=== PATIENT | female | born 1985 | race Caucasian/White ===

== ENCOUNTER 2018-09-10 18:35 | Emergency (ER) | payer MEDICARE ==
[~2018-09-10] VITALS: Ht 157.5 cm; Wt 71.2 kg
[2018-09-10 18:50] VITALS: BP 125/56
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
== END 2018-09-10 19:04 | disposition short-term general hospital (02) ==
LOC: ER 18:35
DX: T76.21XA Adult sexual abuse, suspected, initial encounter (principal); F17.210 Nicotine dependence, cigarettes, uncomplicated; F10.20 Alcohol dependence, uncomplicated; Z88.1 Allergy status to other antibiotic agents; Z88.8 Allergy status to other drugs, medicaments and biological substances; Y90.9 Presence of alcohol in blood, level not specified
CPT/HCPCS: 99285

== ENCOUNTER 2018-10-05 11:31 | Inpatient (IN) | payer MEDICARE ==
[~2018-10-05] VITALS: Ht 157.5 cm; Wt 68.9 kg
[2018-10-05] MEDS ORDERED: IV NORMAL SALINE 1,000ML 1,000 ML IV SCH ×2 (11:38→16:45)
[2018-10-05 11:57] LABS: BASO % 0 % (0-3); EOS % 0 % (0-3); HEMATOCRIT 41.9 % (36.0-47.0); LYMPH # 0.7 x10^3/uL (1.0-4.8); LYMPH % 6 % (24-48); MEAN CORPUSCULAR HEMOGLOBIN 32 pg (25-35); MEAN CORPUSCULAR HGB CONC 34 g/dL (31-37); MEAN CORPUSCULAR VOLUME 95 fL (79-100); MONO # 0.6 x10^3/uL (0.0-1.1); MONO % 5 % (0-9); NEUT # 10.6 x10^3uL (1.8-7.7); NEUT % 89 % (31-73); PLATELET COUNT 231 x10^3/uL (140-400); RED BLOOD COUNT 4.43 x10^6/uL (3.50-5.40); RED CELL DISTRIBUTION WIDTH 12.4 % (11.5-14.5); WHITE BLOOD COUNT 11.9 x10^3/uL (4.0-11.0)
[2018-10-05] MEDS ORDERED: LORazepam 2 MG/ML VIAL IV ONE ×3 (12:00→15:30)
[2018-10-05 12:08] LABS: ALBUMIN 4.2 g/dL (3.4-5.0); CALCIUM 8.7 mg/dL (8.5-10.1); CREATININE 1.1 mg/dL (0.6-1.0); DIRECT BILIRUBIN 0.1 mg/dL (0.0-0.2); GFR 58.3; MAGNESIUM 1.6 mg/dL (1.8-2.4); TOTAL BILIRUBIN 0.2 mg/dL (0.2-1.0); TOTAL PROTEIN 7.7 g/dL (6.4-8.2)
[2018-10-05 12:11] LABS: POTASSIUM 2.8 mmol/L (3.5-5.1)
[2018-10-05 12:44] LABS: BARBITURATES NEG (NEG); BENZODIAZEPINES NEG (NEG); CANNABINOIDS NEG (NEG); COCAINE NEG (NEG); METHADONE NEG (NEG); OPIATES NEG (NEG); PHENCYCLIDINE NEG (NEG)
[2018-10-05 12:45] LABS: AMPHETAMINE/METHAMPHETAMINE POS (NEG)
[2018-10-05 12:47] LABS: BILIRUBIN,URINE NEG (NEG); CLARITY,URINE CLEAR; COLOR,URINE YELLOW; GLUCOSE,URINE 250 mg/dL (NEG)
[2018-10-05 12:48] LABS: BACTERIA,URINE FEW /HPF (0-FEW); NITRITE,URINE NEG (NEG); RBC,URINE RARE /HPF (0-2); SQUAMOUS EPITHELIAL CELL,UR OCC /LPF; UROBILINOGEN,URINE 0.2 mg/dL (0.2 mg/dL); WBC,URINE RARE /HPF (0-4)
[2018-10-05] MEDS ORDERED: POTASSIUM CHLORIDE 20 MEQ TABLET.ER. PO ONE (14:45)
--- NOTE | 2018-10-05 15:29 | PHYS DOC ---
Past History Past Medical History: Anxiety, Bipolar, Depression, Hypertension Past Surgical History: Other Alcohol Use: Heavy Drug Use: Methamphetamine Adult General Chief Complaint Chief Complaint: DRUG ABUSE HPI HPI Patient is a 32-year-old female who presents via EMS with report of erratic behavior, paranoia and tachycardia. EMS reports that heart rate was near 180 while they were in route to ER. Patient reportedly had snorted a line of methamphetamine this morning. She denies any chest pain or shortness of breath. She denies any suicidal or homicidal ideations. She states that she is afraid someone is after her and is out to harm her. Additional history is difficult to obtain as patient is poor historian at this time. Review of Systems Review of Systems Constitutional: Denies fever or chills [] Respiratory: Denies cough or shortness of breath [] Cardiovascular: No additional information not addressed in HPI [] GI: Denies abdominal pain, nausea, vomiting [] Neurologic: Denies headache, focal weakness or sensory changes [] Psychiatric: Patient very anxious, paranoid[] All other systems were reviewed and found to be within normal limits, except as documented in this note. Current Medications Current Medications Current Medications Medications (Trade) Dose Ordered Sig/Linda Start Time Stop Time Status Last Admin Dose Admin Lorazepam (Ativan) 2 mg 1X ONCE 10/05/18 15:30 10/05/18 15:31 UNV 10/05/18 15:25 2 MG Potassium Chloride (Klor-Con) 40 meq 1X ONCE 10/05/18 14:45 10/05/18 14:46 DC 10/05/18 14:57 40 MEQ Sodium Chloride 1,000 ml @ 1,000 mls/hr Q1H 10/05/18 11:38 10/05/18 12:37 DC 10/05/18 11:52 1,000 MLS/HR Allergies Allergies Allergies Coded Allergies Type Severity Reaction Last Updated Verified azithromycin Allergy Severe 09/10/18 Yes olanzapine Allergy Severe 09/10/18 Yes risperidone Allergy Severe 09/10/18 Yes Physical Exam Physical Exam Constitutional: Well developed, well nourished, in moderate to severe anxiety. [ ] HENT: Normocephalic, atraumatic, bilateral external ears normal, oropharynx moist, no oral exudates, nose normal. [] Eyes: PERRLA, EOMI, conjunctiva normal, no discharge. [] Neck: Normal range of motion, no tenderness, supple, no stridor. [] Cardiovascular: Markedly tachycardic rate with regular rhythm [] Lungs & Thorax: Bilateral breath sounds clear to auscultation [] Abdomen: Bowel sounds normal, soft, no tenderness. [] Skin: Warm, dry, no erythema, no rash. [] Extremities: No tenderness, no cyanosis, no clubbing, ROM intact, no edema. [] Neurologic: Awake and alert, normal motor function, normal sensory function, no focal deficits noted. [] Psychologic: Moderately to severely anxious. Poor judgment and insight. [] Current Patient Data Vital Signs Vital Signs Date Time Temp Pulse Resp B/P (MAP) Pulse Ox O2 Delivery O2 Flow Rate FiO2 10/05/18 11:31 177 44 100 Room Air Lab Results Laboratory Tests Test 10/05/18 11:40 10/05/18 12:14 White Blood Count 11.9 x10^3/uL (4.0-11.0) H Red Blood Count 4.43 x10^6/uL (3.50-5.40) Hemoglobin 14.0 g/dL (12.0-15.5) Hematocrit 41.9 % (36.0-47.0) Mean Corpuscular Volume 95 fL (79-100) Mean Corpuscular Hemoglobin 32 pg (25-35) Mean Corpuscular Hemoglobin Concent 34 g/dL (31-37) Red Cell Distribution Width 12.4 % (11.5-14.5) Platelet Count 231 x10^3/uL (140-400) Neutrophils (%) (Auto) 89 % (31-73) H Lymphocytes (%) (Auto) 6 % (24-48) L Monocytes (%) (Auto) 5 % (0-9) Eosinophils (%) (Auto) 0 % (0-3) Basophils (%) (Auto) 0 % (0-3) Neutrophils # (Auto) 10.6 x10^3uL (1.8-7.7) H Lymphocytes # (Auto) 0.7 x10^3/uL (1.0-4.8) L Monocytes # (Auto) 0.6 x10^3/uL (0.0-1.1) Eosinophils # (Auto) 0.0 x10^3/uL (0.0-0.7) Basophils # (Auto) 0.0 x10^3/uL (0.0-0.2) Sodium Level 139 mmol/L (136-145) Potassium Level 2.8 mmol/L (3.5-5.1) *L Chloride Level 102 mmol/L (98-107) Carbon Dioxide Level 24 mmol/L (21-32) Anion Gap 13 (6-14) Blood Urea Nitrogen 14 mg/dL (7-20) Creatinine 1.1 mg/dL (0.6-1.0) H Estimated GFR (Cockcroft-Gault) 58.3 Glucose Level 194 mg/dL (70-99) H Calcium Level 8.7 mg/dL (8.5-10.1) Magnesium Level 1.6 mg/dL (1.8-2.4) L Total Bilirubin 0.2 mg/dL (0.2-1.0) Direct Bilirubin 0.1 mg/dL (0.0-0.2) Aspartate Amino Transferase (AST) 19 U/L (15-37) Alanine Aminotransferase (ALT) 33 U/L (14-59) Alkaline Phosphatase 63 U/L (46-116) Troponin I Quantitative 0.027 ng/mL (0-0.055) Total Protein 7.7 g/dL (6.4-8.2) Albumin 4.2 g/dL (3.4-5.0) Ethyl Alcohol Level < 10 mg/dL (0-10) Urine Collection Type Unknown Urine Color Yellow Urine Clarity Clear Urine pH 6.0 Urine Specific [place] 1.010 Urine Protein Neg (NEG-TRACE) Urine Glucose (UA) 250 mg/dL (NEG) Urine Ketones (Stick) Neg mg/dL (NEG) Urine Blood Neg (NEG) Urine Nitrite Neg (NEG) Urine Bilirubin Neg (NEG) Urine Urobilinogen Dipstick 0.2 mg/dL (0.2 mg/dL) Urine Leukocyte Esterase Neg (NEG) Urine RBC Rare /HPF (0-2) Urine WBC Rare /HPF (0-4) Urine Squamous Epithelial Cells Occ /LPF Urine Bacteria Few /HPF (0-FEW) Urine Opiates Screen Neg (NEG) Urine Methadone Screen Neg (NEG) Urine Barbiturates Neg (NEG) Urine Phencyclidine Screen Neg (NEG) Urine Amphetamine/Methamphetamine Pos (NEG) Urine Benzodiazepines Screen Neg (NEG) Urine Cocaine Screen Neg (NEG) Urine Cannabinoids Screen Neg (NEG) Urine Ethyl Alcohol Neg (NEG) EKG EKG EKG demonstrates sinus tachycardia with rate of 175.[] Radiology/Procedures Radiology/Procedures [] Course & Med Decision Making Course & Med Decision Making Pertinent Labs and Imaging studies reviewed. (See chart for details) [] Dragon Disclaimer Dragon Disclaimer This electronic medical record was generated, in whole or in part, using a voice recognition dictation system. Departure Departure: Impression: Primary Impression: Sinus tachycardia Additional Impression: Methamphetamine intoxication Disposition: ADMITTED INPATIENT Admitting Physician: Edilberto Villanueva Condition: IMPROVED Referrals: PCP,NO (PCP) Problem Qualifiers TERI JIMENEZ Jr. DO Oct 05, 2018 15:29
[2018-10-05] MEDS ORDERED: diphenhydrAMINE HCL 25 MG CAPSULE PO ONE (16:00)
[2018-10-05 16:14] LABS: PREG TEST PT QUAL NEGATIVE (NEG)
[2018-10-05 16:30] VITALS: BP 119/75
[2018-10-05] MEDS ORDERED: LORazepam 2 MG/ML VIAL IV PRN (16:45)
--- NOTE | 2018-10-05 16:57 | EKG ---
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
[2018-10-05] MEDS: POTASSIUM CHLORIDE 20 MEQ TABLET.ER. PO SCH ×3 (17:10→19:19)
[2018-10-05] MEDS ORDERED: MAGNESIUM SULFATE 2GM 50 ML IV ONE (17:30)
[2018-10-05] MEDS ORDERED: hydrOXYzine HCL 10 MG TABLET PO PRN (19:30)
[2018-10-05] MEDS: LORazepam 2 MG/ML VIAL IV PRN ×2 (19:37→21:33)
[2018-10-05] MEDS: NICOTINE 21MG PATCH. TD SCH (20:00)
[2018-10-05] MEDS: MAGNESIUM OXIDE 400 MG TABLET PO SCH (20:29)
[2018-10-05 21:10] LABS: CALCIUM 8.5 mg/dL (8.5-10.1); CREATININE 0.7 mg/dL (0.6-1.0); GFR 98.3
[2018-10-05 21:21] VITALS: BP 127/85
[2018-10-05] MEDS ORDERED: HALOPERIDOL LACT 5 MG/ML VIAL. IVP PRN (21:45)
[2018-10-06 06:11] VITALS: BP 134/82
[2018-10-06] MEDS ORDERED: QUET300T5 PO (06:15)
[2018-10-06] MEDS ORDERED: PRAZ2CAP2 PO (06:15)
[2018-10-06] MEDS ORDERED: TRAZ-85 PO (06:15)
[2018-10-06 07:01] LABS: BASO % 1 % (0-3); EOS # 0.1 x10^3/uL (0.0-0.7); EOS % 2 % (0-3); HEMATOCRIT 36.5 % (36.0-47.0); HEMOGLOBIN 12.4 g/dL (12.0-15.5); LYMPH # 1.9 x10^3/uL (1.0-4.8); LYMPH % 37 % (24-48); MEAN CORPUSCULAR HEMOGLOBIN 33 pg (25-35); MEAN CORPUSCULAR HGB CONC 34 g/dL (31-37); MEAN CORPUSCULAR VOLUME 96 fL (79-100); MONO # 0.4 x10^3/uL (0.0-1.1); MONO % 8 % (0-9); NEUT # 2.7 x10^3uL (1.8-7.7); NEUT % 53 % (31-73); PLATELET COUNT 183 x10^3/uL (140-400); RED BLOOD COUNT 3.79 x10^6/uL (3.50-5.40); RED CELL DISTRIBUTION WIDTH 12.9 % (11.5-14.5)
[2018-10-06 07:21] LABS: ALBUMIN 3.3 g/dL (3.4-5.0); ALBUMIN/GLOBULIN RATIO 1.2 (1.0-1.7); CREATININE 0.7 mg/dL (0.6-1.0); GFR 98.3; POTASSIUM 4.5 mmol/L (3.5-5.1); TOTAL BILIRUBIN 0.3 mg/dL (0.2-1.0); TOTAL PROTEIN 6.1 g/dL (6.4-8.2)
[2018-10-06] MEDS: MAGNESIUM OXIDE 400 MG TABLET PO SCH (10:30)
[2018-10-06] MEDS: NICOTINE 21MG PATCH. TD SCH (10:30)
[2018-10-06 11:13] VITALS: BP 118/73
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
--- NOTE | 2018-10-06 11:56 | DS ---
DATE OF DISCHARGE: 10/06/2018 HOSPITAL COURSE: The patient was admitted yesterday with altered mental status. She was basically paranoid with erratic behavior, thinking that somebody is out there to get her and harm her. She noted the line of methamphetamine yesterday morning and was found on initial evaluation to have marked sinus tachycardia with a heart rate that was up to 170 or more. She was hypomagnesemic, hypokalemic. She was admitted. On the monitor bed she was sedated with Ativan and her initial troponin was slightly elevated, so we did 2 more sets of cardiac enzyme and to consult the local intermodal truck driver as her troponin has risen from 0.027-0.077 and then came down to 0.050. She was seen by Dr. Carrillo at least by the nursing report, who cleared her from cardiac point of view. She remained hemodynamically stable. A decision was made to discharge her home to continue on her usual medication. Her potassium and magnesium were replenished. She was advised to follow with her primary care physician as her blood sugar is slightly high and she has hyperuricemia and perhaps type 2 diabetes. She also should follow with [facility]. She said that her medications were renewed by recent admission to [facility]. PHYSICAL EXAMINATION: GENERAL: When I examined her this morning, she looked well and was clearly in no apparent respiratory distress. No pallor, jaundice, or cyanosis. No lymphadenopathy, no thyromegaly. No jugular venous distension. No lower limb edema. VITAL SIGNS: Her heart rate was 70, blood pressure was 134/82, temperature was 97.6, respiratory rate was 16 and oxygen saturation was 100% on room air. HEAD, EYES, EARS, NOSE AND THROAT: Showed normocephalic, atraumatic. NECK: Supple. HEART: Showed normal first and second heart sounds with no gallop, rub or murmur. CHEST: Clear to auscultation. No crepitation or rhonchi. ABDOMEN: Distended, soft, nontender. No guarding or rigidity. No organomegaly. All hernial orifice intact. Bowel sounds normal. NEUROLOGIC: She was awake, alert, responding appropriately. All cranial nerves intact. She moves extremities without difficulty. She ambulates without assistance or assistive devices. LABORATORY DATA: Her lab work this morning showed a white cell count of 5000, hemoglobin 12, hematocrit 36.5, MCV 96, and platelet count of 183,000 with normal manual differential. Her chemistry showed a serum sodium 140, potassium 4.5, chloride 109, bicarbonate 23, anion gap of 8, BUN 9, creatinine 0.7, estimated GFR was 98 mL per minute. Her glucose was 93, calcium was 8. Total bilirubin, AST, ALT, alkaline phosphatase were normal. Her total protein was 6.1, albumin was 3.3. Her TSH was normal. DISCHARGE MEDICATIONS: The patient was discharged home to continue on her current medication, which includes prazosin 2 mg at bedtime, trazodone 50 mg at bedtime and quetiapine fumarate 300 mg at bedtime. FINAL DISCHARGE DIAGNOSES: Amphetamine abuse disorder, bipolar disorder, genital herpes, hypokalemia, hypomagnesemia, hypertension, questionable type 2 diabetes. KESHIA JONES MD DR: ALEXANDRU/nick JOB#: [id number] / [id number]
[2018-10-06] MEDS ORDERED: QUEtiapine 100 MG TABLET. PO SCH (18:00)
[2018-10-06] MEDS ORDERED: PRAZOSIN 1 MG CAPSULE. PO SCH (21:00)
[2018-10-06] MEDS ORDERED: traZODone 50 MG TABLET. PO SCH (21:00)
== END 2018-10-06 12:30 | disposition home or self-care (01) | DRG 640 ==
LOC: ER 11:31 → 1 SOUTH 15:59
PROVIDERS: ADMIT Internal Medicine; ATTEND Internal Medicine
DX: E87.6 Hypokalemia (principal); G92 Toxic encephalopathy; A60.00 Herpesviral infection of urogenital system, unspecified; E83.42 Hypomagnesemia; F15.129 Other stimulant abuse with intoxication, unspecified; F17.210 Nicotine dependence, cigarettes, uncomplicated; F41.9 Anxiety disorder, unspecified; R00.0 Tachycardia, unspecified; E11.9 Type 2 diabetes mellitus without complications; F31.9 Bipolar disorder, unspecified; I10 Essential (primary) hypertension; Z82.49 Family history of ischemic heart disease and other diseases of the circulatory system; Z88.8 Allergy status to other drugs, medicaments and biological substances; Z79.84 Long term (current) use of oral hypoglycemic drugs
CPT/HCPCS: 36415; 80048; 80053; 80076; 80307; 81001; 82550; 83735; 84443; 84484; 84703; 85025; 93005; 96361; 96374; 96376; G0480; J1630; J2060; J3475; Q0163; 99285-25; J7030

== ENCOUNTER 2018-10-30 05:53 | Emergency (ER) | payer MEDICARE ==
[~2018-10-30] VITALS: Ht 157.5 cm; Wt 63.5 kg
[~2018-10-30 05:53] MED LIST: PRAZ2CAP2 PO; QUET300T5 PO; TRAZ-85 PO
[2018-10-30 05:55] VITALS: BP 123/80
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
== END 2018-10-30 07:24 | disposition short-term general hospital (02) ==
LOC: ER 05:53 → EEVIPCON 05:53 → ER 07:24
DX: T76.21XA Adult sexual abuse, suspected, initial encounter (principal); Z91.410 Personal history of adult physical and sexual abuse; F41.9 Anxiety disorder, unspecified; F31.9 Bipolar disorder, unspecified; I10 Essential (primary) hypertension; Z88.1 Allergy status to other antibiotic agents; Z88.8 Allergy status to other drugs, medicaments and biological substances
CPT/HCPCS: 99285